=== PATIENT | male | born 1950 | race Caucasian/White ===

== ENCOUNTER 2021-10-05 10:40 | Emergency (ER) | payer BC, MEDICARE, OTHER ==
[~2021-10-05] VITALS: Ht 167.7 cm; Wt 79.5 kg
[2021-10-05 11:28] LABS: MEAN CORPUSCULAR HGB CONC 34 g/dL (32-36)
[2021-10-05 11:30] LABS: BASOPHILS % (AUTO) 1 % (0-10); EOSINOPHILS # (AUTO) 0.1 10^3/uL (0.0-0.3); EOSINOPHILS % (AUTO) 1 % (0-10); HEMATOCRIT 45 % (40-54); HEMOGLOBIN 15.4 g/dL (13.3-17.7); LYMPHOCYTES # (AUTO) 2.4 10^3/uL (1.0-4.0); LYMPHOCYTES % (AUTO) 43 % (12-44); MEAN CORPUSCULAR HEMOGLOBIN 31 pg (25-34); MEAN CORPUSCULAR VOLUME 90 fL (80-99); MONOCYTES # (AUTO) 0.6 10^3/uL (0.0-1.0); MONOCYTES % (AUTO) 12 % (0-12); NEUTROPHILS # (AUTO) 2.4 10^3/uL (1.8-7.8); NEUTROPHILS % (AUTO) 43 % (42-75); PLATELET COUNT 119 10^3/uL (130-400); WHITE BLOOD COUNT 5.5 10^3/uL (4.3-11.0)
--- NOTE | 2021-10-05 11:30 | ED Neurological Problem ---
General Chief Complaint: Dizziness/Syncope Stated Complaint: L EAR HEARING LOSS Source: patient Exam Limitations: no limitations History of Present Illness Date Seen by Provider: Oct 05, 2021 Time Seen by Provider: 11:26 Initial Comments Patient is a 71-year-old male with a history of dyslipidemia, diabetes, smoking who presents ED with dizziness and left hearing loss. Symptoms started abruptly 2 days ago. Started having left-sided hearing deficits and dizziness. The dizziness appears to be with walking. He states he has to use a cane for stability while walking. States he vomited yesterday secondary to the dizziness. Patient reports he was seen at [facility] and had a abnormal CTA of the head and neck concerning for severe stenosis. They was recommending transfer to [facility] patient refused EMS transfer. Patient was started on Plavix but has not picking up the medication. Patient did receive a dose of Plavix, meclizine and aspirin at [facility]. Patient denies of any current chest pain, shortness of breath, diarrhea, headache, visual loss, unilateral muscle weakness or sensory changes. He states he does have some hearing improvement the left side. Patient denies ear ringing. Allergies and Home Medications Patient Home Medication List Home Medication List Reviewed: Yes Review of Systems Review of Systems Constitutional: No chills, No diaphoresis, No malaise, No weakness Eyes: Denies Blurred Vision, Denies Drainage, Denies Pain, Denies Photophobia Ears, Nose, Mouth, Throat: denies ear pain, denies ear discharge Respiratory: No cough, No dyspnea on exertion, No short of breath, No wheezing Gastrointestinal: No abdominal pain, No diarrhea, No nausea, No vomiting Genitourinary: No decreased output, No discharge Musculoskeletal: No back pain, No joint pain Skin: No change in color, No change in hair/nails All Other Systems Reviewed Negative Unless Noted: Yes Past Ndoacqo-Mjlava-Qxquzq Hx Patient Social History Tobacco Use?: No Smoking Status: Never a Smoker Smokeless Tobacco Frequency: Never a User Use of E-Cig and/or Vaping dev: No Use of E-Cig and/or Vaping Henry: Never a User Substance use?: No Alcohol Use?: No Pt feels they are or have been: No Physical Exam Vital Signs Vital Signs - First Documented 10/05/21 10/05/21 10:47 13:43 Temp 36.2 Pulse 63 Resp 17 B/P (MAP) 99/83 (88) Pulse Ox 98 O2 Delivery Room Air Capillary Refill : Height, Weight, BMI Height: '" Weight: lbs. oz. kg; BMI Method: General Appearance: WD/WN, no apparent distress HEENT: PERRL/EOMI, normal ENT inspection, TMs normal, pharynx normal Neck: non-tender, full range of motion, supple Respiratory: chest non-tender, lungs clear, normal breath sounds, no respiratory distress, no accessory muscle use Cardiovascular: no edema, no gallop, no JVD, bradycardia Gastrointestinal: normal bowel sounds, non tender, soft, no organomegaly Back: normal inspection, no CVA tenderness, no vertebral tenderness Extremities: normal range of motion, non-tender, normal inspection, no pedal edema Neurologic/Psychiatric: head housekeeper II-XII nml as tested, no motor/sensory deficits, alert, normal mood/affect, oriented x 3 Motor/Sensory: no motor deficit, no sensory deficit, no pronator drift Skin: normal color, warm/dry Progress/Results/Core Measures Results/Orders Lab Results Laboratory Tests Test 10/05/21 10:55 Range/Units White Blood Count 5.5 4.3-11.0 10^3/uL Red Blood Count 4.99 4.30-5.52 10^6/uL Hemoglobin 15.4 13.3-17.7 g/dL Hematocrit 45 40-54 % Mean Corpuscular Volume 90 80-99 fL Mean Corpuscular Hemoglobin 31 25-34 pg Mean Corpuscular Hemoglobin Concent 34 32-36 g/dL Red Cell Distribution Width 13.8 10.0-14.5 % Platelet Count 119 L 130-400 10^3/uL Mean Platelet Volume 11.0 9.0-12.2 fL Immature Granulocyte % (Auto) 0 % Neutrophils (%) (Auto) 43 42-75 % Lymphocytes (%) (Auto) 43 12-44 % Monocytes (%) (Auto) 12 0-12 % Eosinophils (%) (Auto) 1 0-10 % Basophils (%) (Auto) 1 0-10 % Neutrophils # (Auto) 2.4 1.8-7.8 10^3/uL Lymphocytes # (Auto) 2.4 1.0-4.0 10^3/uL Monocytes # (Auto) 0.6 0.0-1.0 10^3/uL Eosinophils # (Auto) 0.1 0.0-0.3 10^3/uL Basophils # (Auto) 0.0 0.0-0.1 10^3/uL Immature Granulocyte # (Auto) 0.0 0.0-0.1 10^3/uL Percent Immature Platelet Fraction 8.2 H 0.0-7.6 % Prothrombin Time 12.8 12.2-14.7 SEC INR Comment 0.9 0.8-1.4 Activated Partial Thromboplast Time 33 24-35 SEC Sodium Level 140 135-145 MMOL/L Potassium Level 3.9 3.6-5.0 MMOL/L Chloride Level 104 98-107 MMOL/L Carbon Dioxide Level 26 21-32 MMOL/L Anion Gap 10 5-14 MMOL/L Blood Urea Nitrogen 15 7-18 MG/DL Creatinine 0.82 0.60-1.30 MG/DL Estimat Glomerular Filtration Rate 94 BUN/Creatinine Ratio 18 Glucose Level 184 H 70-105 MG/DL Calcium Level 8.7 8.5-10.1 MG/DL Corrected Calcium 8.6 8.5-10.1 MG/DL Total Bilirubin 0.5 0.1-1.0 MG/DL Aspartate Amino Transf (AST/SGOT) 16 5-34 U/L Alanine Aminotransferase (ALT/SGPT) 29 0-55 U/L Alkaline Phosphatase 67 40-136 U/L Troponin I < 0.028 <0.028 NG/ML Total Protein 6.9 6.4-8.2 GM/DL Albumin 4.1 3.2-4.5 GM/DL My Orders Orders - DONOVAN KIRKPATRICK PA Cbc With Automated Diff (10/05/21 11:21) Comprehensive Metabolic Panel (10/05/21 11:21) Troponin I Dominick (10/05/21 11:21) Chest 1 View, Ap/Pa Only (10/05/21 11:21) Partial Thromboplastin Time (10/05/21 11:21) Protime With Inr (10/05/21 11:21) Mri Brain W/O Contrast (10/05/21 11:21) Vital Signs/I&O 10/05/21 10/05/21 10:47 13:43 Temp 36.2 Pulse 63 67 Resp 17 17 B/P (MAP) 99/83 (88) 122/76 Pulse Ox 98 O2 Delivery Room Air Room Air Departure Communication (PCP) Patient was evaluated at [facility] yesterday in the ER and recommended transfer to [facility] in [place] for stroke work-up. Patient refused transfer and left AMA. Presents ED with similar symptoms of left-sided hearing changes and vertigo. Vertigo occurs with head movement when he stands. Has been using a cane for assistance. Vomited yesterday. No history of stroke. Patient on arrival was bradycardic in the 40s to 60s beats per minute. EKG did show some PVCs with bradycardia. He has no current chest pain or shortness of breath. No known history of coronary artery disease according to patient. Patient was normotensive. Currently asymptomatic continu e monitoring. Normal troponin. Chest ray unremarkable lab work was otherwise unremarkable. NIH is 0 here today. Not a tPA candidate. Patient had a CT angio of the head and neck which did not note any severe stenosis, occlusion, dissection or aneurysm. Bilateral carotid bifurcations with less than 50% luminal stenosis. There did note a thick soft atherosclerotic plaque along the right carotid bifurcation with a thin rim of adventitial calcification. Highly predictive of intraplaque hemorrhage risk factor for cerebral infarction. CT scan of the head was unremarkable. Patient was discussed with vascular surgeon at [facility] who states he can follow-up in the office tomorrow regarding the carotid vascular finding. This was not emergent intervention at this time. Due to the continued dizziness and vertigo here recommend admission for further evaluation. Do not currently have ENT distance education teacher to consult. Patient stroke work-up otherwise unremarkable with negative MRI here in the ER. Concerning for the continuous vertigo and left-sided hearing changes. Discussed differential of potential Mnire's disease versus vestibular neuritis, labyrinthitis as possible inner ear organ related. However neurology would likely need to be consulted to rule out other neuro etiologies. Discussed patient with our hospitalist who states we do not have neurology or ENT on-call and would likely need a facility that has these specialties. [facility] and [facility] were not excepting for med telemetry. I was able to get patient accepted at [facility] in [place]. Before transfer patient was refusing transfer and states he will follow-up outpatient with vascular surgery and ENT and neurology. Discussed risks such as potential worsening condition. Patient acknowledges. Patient does have Plavix which was recommended by vascular surgery to continue taking. Patient does have meclizine. If any worsening symptoms return back to ED for further evaluation. Patient heart rate continued to improve to 60 to 65 bpm. Not currently on beta-blockers or calcium channel blockers. Unclear etiology. Further cardiac evaluation is needed. Impression Primary Impression: Dizziness Additional Impressions: Vertigo Bradycardia Hearing loss Carotid stenosis Disposition: AGAINST MEDICAL ADVICE Condition: Stable Departure-Patient Inst. Decision time for Depature: 13:37 Referrals: LANRE HUMPHRIES MD (PCP/Family) Primary Care Physician Patient Instructions: Carotid Artery Disease, Bradycardia (DC), Vertigo (a Type of Dizziness) (DC) Add. Discharge Instructions: May follow-up with cardiothoracic surgeon at [facility] [phone] May follow-up with ENT at [facility] [phone] Continue with Plavix All discharge instructions reviewed with patient and/or family. Voiced understanding. DONOVAN KIRKPATRICK Oct 05, 2021 11:30
[2021-10-05 11:33] LABS: ALBUMIN 4.1 GM/DL (3.2-4.5)
[2021-10-05 11:34] LABS: CHLORIDE 104 MMOL/L (98-107); POTASSIUM 3.9 MMOL/L (3.6-5.0); SODIUM 140 MMOL/L (135-145)
[2021-10-05 11:35] LABS: CALCIUM 8.7 MG/DL (8.5-10.1)
[2021-10-05 11:36] LABS: GLUCOSE 184 MG/DL (70-105); TOTAL PROTEIN 6.9 GM/DL (6.4-8.2)
[2021-10-05 11:37] LABS: CARBON DIOXIDE 26 MMOL/L (21-32)
[2021-10-05 11:38] LABS: BILIRUBIN,TOTAL 0.5 MG/DL (0.1-1.0)
[2021-10-05 11:39] LABS: ALKALINE PHOSPHATASE 67 U/L (40-136)
[2021-10-05 11:40] LABS: CREATININE SERUM 0.82 MG/DL (0.60-1.30); GFR ESTIMATED 94
[2021-10-05 11:41] LABS: BUN/CREATININE RATIO 18; INR 0.9 (0.8-1.4); PROTHROMBIN TIME PATIENT 12.8 SEC (12.2-14.7)
[2021-10-05 11:42] LABS: ALANINE AMINOTRANSFERASE 29 U/L (0-55)
--- NOTE | 2021-10-05 12:23 | Diagnostic Imaging Report ---
CLINICAL INDICATION: Patient left-sided hearing loss and dizziness. EXAM: MRI of the brain/IACs without contrast. Sequences include axial DWI, ADC map, axial T2, axial FLAIR, axial T1, axial gradient echo, axial 3-D fiesta, and sagittal T1. COMPARISON: None. FINDINGS: There is no evidence of acute cerebral infarct, intracranial hemorrhage, or gross mass effect. Visualized portions of cranial nerves in the basal cistern regions and IACs show no gross abnormality. There is no retrocochlear abnormality or abnormality in the cerebellopontine angle seen. The brain parenchymal volume appears appropriate for patient's age. There are multiple focal, patchy, confluent areas of high T2 signal white matter changes seen throughout both cerebral hemispheres, periventricular regions, and tylor likely representing chronic small vessel ischemic disease and leukoaraiosis. There is normal hernandez-white matter distinction. There is no significant midline shift or herniation. The [place] vascular structures show no gross abnormality as visualized. There is no evidence of hydrocephalus. The basal cisterns are unremarkable. The skull, extracranial soft tissue, and orbits are unremarkable. Minimal mucosal thickening involving both maxillary sinuses, frontal sinus, ethmoid sinus. Temporal bones show no significant abnormality. IMPRESSION: 1: There is no evidence of acute intracranial process. 2: Age-related brain parenchymal changes including chronic small vessel ischemic disease and leukoaraiosis. 3: The basal cisterns, IAC, and visualized cranial nerves are unremarkable as visualized. Dictated by: Dictated on workstation # [id number]
--- NOTE | 2021-10-05 12:26 | Diagnostic Imaging Report ---
CLINICAL INDICATION: Patient with dizziness. EXAM: Portable chest x-ray, upright view. COMPARISON: None. FINDINGS: Lungs/pleura: There is amorphous airspace opacification involving the inferior left perihilar region, which may represent lung infiltrate. There are increased lung markings in the right lung base, which may represent atelectasis or scarring. The remainder of the lungs are clear. There is no pneumothorax. There is no pleural effusion. Mediastinum: Unremarkable. Pulmonary vasculature: Unremarkable. Heart: Unremarkable. Bones/extrathoracic soft tissue: There are degenerative spurs involving the thoracic spine. IMPRESSION: 1: There is subtle ill-defined airspace opacification involving the inferior left perihilar region, which may represent subtle infiltrate. 2: Suspected mild atelectasis or scarring in right lung base. Dictated by: Dictated on workstation # [id number]
[2021-10-05 13:43] VITALS: BP 122/76
== END 2021-10-05 13:43 | disposition left against medical advice (07) ==
LOC: ER 10:43
DX: H91.92 Unspecified hearing loss, left ear (principal); I65.29 Occlusion and stenosis of unspecified carotid artery; T45.526A Underdosing of antithrombotic drugs, initial encounter; Z91.14 Patient's other noncompliance with medication regimen
CPT/HCPCS: 36415; 70551; 71045; 80053; 84484; 85025; 85610; 85730; 93005